=== PATIENT | male | born 1940 | race Two or more races ===

== ENCOUNTER 2020-08-20 11:28 | Emergency (ER) | payer OTHER ==
[2020-08-20] MEDS ORDERED: SODIUM CHLORIDE 500 ML IV STA (12:04)
[2020-08-20 12:06] VITALS: BMI 31.2
[2020-08-20 12:26] LABS: BASO % 0.2 % (0-2.0); HEMATOCRIT 44.8 % (35.4-49); LYMPH % 12.5 % (8-40); MCH 29.6 pg (25.7-33.7); MCHC 33.5 g/dl (32.0-35.9); MEAN CELL VOLUME 88.2 fl (80-96); MEAN PLT VOLUME 8.6 fl (7.5-11.1); NEUT % 75.3 % (42.8-82.8); PLATELET COUNT 190 K/MM3 (134-434); RBC 5.08 M/mm3 (4.00-5.60); RDW 13.4 % (11.9-15.9); WHITE BLOOD COUNT 5.2 K/mm3 (4.0-10.0)
[2020-08-20 12:47] LABS: POTASSIUM 3.6 mmol/L (3.5-5.1)
[2020-08-20 12:49] LABS: CALCIUM 8.3 mg/dL (8.5-10.1)
[2020-08-20 12:50] LABS: BLOOD UREA NITROGEN 23.1 mg/dL (7-18)
[2020-08-20 12:53] LABS: ALBUMIN 3.4 g/dl (3.4-5.0); CREATININE 1.2 mg/dL (0.55-1.3)
[2020-08-20 12:54] LABS: BILIRUBIN,TOTAL 0.9 mg/dL (0.2-1)
[2020-08-20 12:55] LABS: TOT PROT 7.2 g/dl (6.4-8.2)
[2020-08-20] MEDS ORDERED: BAMLANIVIMAB 700 MG in SODIUM CHLORIDE 250 ML IVPB ONE (13:00)
[2020-08-20 15:07] VITALS: BP 106/55; PULSE 86; TEMP 99.6
== END 2020-08-20 15:35 | disposition home or self-care (01) ==
LOC: JER 11:28
PROC: 3E02329 Introduction of Other Anti-infective into Muscle, Percutaneous Approach (ICD-10-PCS; principal; 2020-08-20)
PROC: 3E0337Z Introduction of Electrolytic and Water Balance Substance into Peripheral Vein, Percutaneous Approach (ICD-10-PCS; 2020-08-20)
DX: U07.1 COVID-19 (principal)
CPT/HCPCS: 36415; 80053; 85025; 96361; 96365; 99284-25; M0239; Q0239